=== PATIENT | female | born 1980 | race Caucasian/White ===

== ENCOUNTER 2022-05-18 11:31 | Emergency (ER) | payer BC, SELFPAY ==
[2022-05-18 11:32] VITALS: BP 100/65; PULSE 52; RESP 14; TEMP 36.4; O2SAT 100; BMI 23.1
--- NOTE | 2022-05-18 11:54 | ED.VIS.FEGU ---
HPI HPI - Female History of Present Illness Chief Complaint: Vag Bleeding Informant: patient Narrative Narrative: Patient is a 41-year-old female presenting with heavy vaginal bleeding. Patient was started on Xarelto about 3 weeks ago for atrial fibrillation. Patient is also on sotalol for this. This is her first menstrual cycle since being on Xarelto. She states her period started 2 days ago and she is been having heavy bleeding. She states she is gone through 4-5 super tampons today already. She initially saw the nurse practitioner at her fishing rod mechanic office and then they recommend she come to the ER to have her blood counts checked and to get some IV fluids. Patient states she has been feeling a little lightheaded and weak but right now she actually feels better. Denies any pelvic pain. Was prescribed a medication to help stop the bleeding at the office today but has not picked it up. Denies any other bleeding. Patient was informed that she does not necessarily need to be on the Xarelto because her [id number] score was so low however she elected to start taking it anyway. No other complaints at this time. [facility] Medical History A-fib Allergy/AdvReac Type Severity Reaction Status Date / Time amoxicillin Allergy Hives Verified 05/18/22 11:34 cephalexin Allergy Hives Verified 05/18/22 11:34 Social History Smoking Status: Never smoker ROS ROS ED Constitutional Constitutional ED: Denies chills or fever(s) Eyes Eyes: Denies blurry vision or change in vision ENT ENT ED: Denies sore throat Cardiovascular Cardiovascular: Denies chest pain Respiratory/Chest Respiratory/Chest: Denies cough Gastrointestinal Gastrointestinal: Denies abdominal pain, diarrhea, nausea or vomiting Genitourinary Genitourinary ED: Reports other Details: heavy vaginal bleeding ; Denies dysuria or hematuria Musculoskeletal Musculoskeletal: Denies arthralgias or myalgias Integumentary Denies rash Neurologic Neurologic: Denies headache(s) or weakness Psychiatric Psychiatric: Denies anxiety Hematologic/Lymphatic Hematologic/Lymphatic: Reports easy bleeding and easy bruising EXAM Physical Exam Const Vital Signs: 05/18/22 11:32 Temperature 97.6 F L Temperature Source Temporal Pulse Rate 52 L Respiratory Rate 14 Blood Pressure 100/65 Blood Pressure Mean 76 Pulse Ox 100 Oxygen Delivery Method Room Air Positive well nourished and well developed General Appearance ED: well developed HEENT Reports moist mucous membranes Negative for trauma Eyes PERRL and EOMs intact bilaterally General Eye ED: Negative for pale conjunctiva Neck supple and no JVD Chest Wall inspection of chest normal Resp normal respiratory effort and clear to auscultation bilaterally Cardio regular rate, regular rhythm and no murmurs GI normal to inspection, nondistended, normoactive bowel sounds, soft to palpation and non-tender Neuro oriented x3 and CN's II-XII intact bilaterally Sensorium / Orientation: alert Psych mental status grossly normal Skin no rashes or lesions noted MDM MDM MDM Narrative Medical decision making narrative: Evaluate for heavy vaginal bleeding. She was started on Xarelto which I suspect is contributing to this. She was prescribed a progesterone taper from her fishing rod mechanic earlier today to help stem the bleeding. Patient is hemodynamically stable. She is mildly bradycardic in the ER but I suspect this is from her sotalol. Her hemoglobin is normal at 14.1. She is able to get up and go to the bathroom a couple times without any symptoms. I do not think she requires further imaging or admission at this time. Patient is agreeable with going home. She is given a fluid bolus. Spoke with Dr. Whitaker, her fishing rod mechanic, who will follow up with her in 2 weeks and encouraged her to take the taper to stem the bleeding. Patient will also follow-up with her senior marketing coordinator if the bleeding persists with regular menstrual cycles to see if she still needs to be on anticoagulation. Lab Data Attestation: I reviewed the patient's lab results. Labs: Laboratory Results - last 24 hr 05/18/22 05/18/22 05/18/22 12:19 12:42 12:42 WBC 5.4 RBC 4.44 Hgb 14.1 Hct 41.3 MCV 93.0 MCH 31.8 MCHC 34.1 RDW Std Deviation 42.0 RDW Coeff of Odalys 12.2 Plt Count 229 MPV 10.0 Immature Gran % (Auto) 0.400 Neut % (Auto) 67.5 Lymph % (Auto) 21.4 [place] % (Auto) 8.3 Eos % (Auto) 1.8 Baso % (Auto) 0.6 Absolute Neuts (auto) 3.7 Absolute Lymphs (auto) 1.16 Nucleated RBC % 0 PT 15.2 H INR 1.2 Urine Color Yellow Urine Clarity Clear Urine pH 7.0 Ur Specific [place] 1.005 Urine Protein 30 H Urine Glucose (UA) Normal Urine Ketones Negative Urine Occult Blood 250 H Urine Nitrite Negative Urine Bilirubin Negative Urine Urobilinogen Normal Ur Leukocyte Esterase 25 H Urine RBC 10-25 SEEN Urine WBC 0 SEEN Ur Squamous Epith Cells 0 SEEN Urine Bacteria 0 SEEN Urine Mucus 0 SEEN Urine Test Negative Blood Type Antibody Screen 05/18/22 12:42 WBC RBC Hgb Hct MCV MCH MCHC RDW Std Deviation RDW Coeff of Odalys Plt Count MPV Immature Gran % (Auto) Neut % (Auto) Lymph % (Auto) [place] % (Auto) Eos % (Auto) Baso % (Auto) Absolute Neuts (auto) Absolute Lymphs (auto) Nucleated RBC % PT INR Urine Color Urine Clarity Urine pH Ur Specific [place] Urine Protein Urine Glucose (UA) Urine Ketones Urine Occult Blood Urine Nitrite Urine Bilirubin Urine Urobilinogen Ur Leukocyte Esterase Urine RBC Urine WBC Ur Squamous Epith Cells Urine Bacteria Urine Mucus Urine Test Blood Type A POSITIVE Antibody Screen NEGATIVE Discharge Plan Triage Chief Complaint: Vag Bleeding ED Provider: Belen Jennings Dx/Rx/DC Orders Clinical Impression: Episode of heavy vaginal bleeding, snf (current) use of anticoagulants Primary Care Provider: Naveen Price Referrals: Naveen Price MD [Primary Care Provider] - Kristy Whitaker MD [STAFF PHYSICIAN] - (Follow-up in 2 weeks for repeat check and long-term management of vaginal bleeding. ) Activity Restrictions/Additional Instructions: Please follow-up with your MEMBERSHIP ASSISTANT in 2 weeks for further long-term planning of this vaginal bleeding. Start taking the medication you were prescribed earlier today to help with the bleeding. If the bleeding continues to be an issue, you might need to further discuss it with your senior marketing coordinator for anticoagulation options. Disposition Disposition: Home, Self Care
[2022-05-18 12:24] LABS: Bacteria 0 SEEN /hpf (None Seen); Mucous, Urine 0 SEEN /hpf (<or=2+); Squamous Epithelial Cells - UA 0 SEEN /hpf (5-10); White Blood Cells 0 SEEN /hpf (0-5)
[2022-05-18 12:30] LABS: Glucose, Dipstick Normal (Normal); Ketone-Dipstick Negative (Negative); Leukocyte Esterase-Dipstick 25 /ul (Negative); Nitrite-Dipstick Negative (Negative); Occult Blood-Urine 250 /ul (Negative); Protein-Dipstick 30 mg/dl (Negative); Specific Gravity, Urine 1.005 (1.002-1.030); Urine Bilirubin Dipstick Negative (Negative); Urine Clarity Clear (Clear); Urine Urobilinogen Normal (Normal)
[2022-05-18 12:44] LABS: Internal QC Validated? YES +Cl - CLEAR BKGD; Pregnancy, Urine Negative Negative
[2022-05-18] MEDS: 0.9% Normal Saline 1,000 ML 999 ML IV (12:44)
[2022-05-18 12:45] LABS: Color, Urine Yellow (Yellow); Red Blood Cells-Urine 10-25 SEEN /hpf (0-5)
[2022-05-18 13:01] LABS: Absolute Lymphocyte Count 1.16 X10^3/uL (0.83-4.51); Absolute Neutrophil Count 3.7 X10^3/uL (2.0-7.7); Basophil# 0.03 X10^3/uL; Basophil% 0.6 % (0-1); Eosinophils% 1.8 % (0-5); Hematocrit 41.3 % (37-47); Hemoglobin 14.1 g/dL (12.0-15.0); Lymphocyte # 1.16 X10^3/ul (0.83-4.51); Lymphocyte % 21.4 % (19-41); Mean Corp Hgb Conc 34.1 g/dL (32-36); Mean Corpuscular Hgb 31.8 pg (27.0-32.0); Monocyte# 0.45 X10^3/uL; Monocyte% 8.3 % (0-10); NRBC Flagged by Analyzer 0 % (0-5); Neutrophil # 3.66 X10^3/uL (2.7-7.7); Neutrophil % 67.5 % (47-70); Platelet Count 229 K/mm3 (150-450); RBC Distribution Width CV 12.2 % (11.6-14.6); Red Blood Count 4.44 M/mm3 (4.2-5.4); White Blood Count 5.4 K/mm3 (4.4-11.0)
[2022-05-18 13:09] LABS: International Normalized Ratio 1.2; Prothrombin Time (Protime)PT. 15.2 SECONDS (11.7-14.9)
[2022-05-18 14:48] VITALS: BP 115/78; PULSE 72; RESP 14; TEMP 37.2; O2SAT 99
== END 2022-05-18 14:50 | disposition home or self-care (01) ==
PROVIDERS: Emergency Provider Emergency Medicine; PCP Family Medicine; Visit Provider Emergency Medicine
DX: N93.9 Abnormal uterine and vaginal bleeding, unspecified (principal); Z79.01 Long term (current) use of anticoagulants
CPT/HCPCS: 81001; 81025; 85025; 85610; 86850; 86900; 86901; 99283; J7030; A4216

== ENCOUNTER 2023-12-06 07:54 | Day surgery (SDC) | payer BC, SELFPAY ==
--- NOTE | 2023-11-29 17:14 | PCM.HP.BLA ---
History and Physical Date of Admission: 12/06/23 HPI: The patient is a 43 year old female presenting for pre-operative visit. She is scheduled for hysteroscopy D&C with possible polyp resection, for endometrial polyp on 12/06/23. Procedure discussed along with risks, benefits and complications. Other alternatives discussed for management. Consent form signed? Yes. ? ? PAST MEDICAL HISTORY PAST MEDICAL HISTORY Diagnosis Date ? Atrial fibrillation (HCC) ? ? s/p ablation. Dr. Dawkins in [place] ? Dysthymic disorder ? ? Depression (non-psychotic)/ANXIETY ? Frequent PVCs ? ? 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 History of Clostridioides difficile infection 05/17/2020 ? Incomplete RBBB ? ? Iron deficiency anemia ? ? Migraine, unspecified, with intractable migraine, so stated, without mention of status migrainosus ? ? Migraine ? Mitral valve prolapse ? ? Non-celiac gluten sensitivity ? ? Paroxysmal tachycardia (HCC) ? ? PMH - PAST MEDICAL HISTORY OF 1998 ? heart murmur ? PMH - PAST MEDICAL HISTORY OF 1990 ? CHILDHOOD SEIZURE ? Prolonged QT interval ? ? Wide-complex tachycardia ? ? ? PAST SURGICAL HISTORY PAST SURGICAL HISTORY Procedure Laterality Date ? EXTRACTION, ERUPTED TOOTH OR EXPOSED ROOT (ELEVATION AND/OR FORCEPS REMOVAL) ? ? ? wisdom teeth ? PAST SURGICAL HISTORY OF ? 11/21/2016 ? gum recession surgery ? PAST SURGICAL HISTORY OF N/A 04/2020 ? gum recession surgery ? PAST SURGICAL HISTORY OF ? 07/04/2021 ? cardiac ablation ? ? ? CURRENT MEDICATIONS Current Outpatient Medications Medication Sig Dispense Refill ? levothyroxine (SYNTHROID) 88 mcg tablet Take 1 tablet by mouth once daily. Take on empty stomach. 45 tablet 0 ? multivit with iron,minerals (MULTIVITAMIN AND MINERALS ORAL) ? ascorbic acid, vitamin C, (VITAMIN C) 250 mg tablet ? sotalol (BETAPACE) 80 mg tablet ? cholecalciferol (VITAMIN D3) 1,000 unit tab tablet Take 1,000 Units by mouth once daily. ? ? ? MELATONIN ORAL Take by mouth. ? ? ? ferrous sulfate (IRON ORAL) Take 1 tablet by mouth once daily. ? ? ? No current facility-administered medications for this visit. ? ? ALLERGIES: Amoxicillin and Keflex [Cephalexin] ? PERSONAL HISTORY: SOCIAL HISTORY Social History ? Tobacco Use ? Smoking status: Never ? Smokeless tobacco: Never Vaping Use ? Vaping Use: Never used Substance Use Topics ? Alcohol use: No ? Drug use: No ? FAMILY HISTORY: FAMILY HISTORY FAMILY HISTORY Problem Relation Age of Onset ? other (Gallbladder Removal) Mother ? ? Thyroid Father ? ? other (Gallbladder Removal) Maternal Grandmother ? ? Coronary Artery Disease Maternal Grandfather ? ? Osteoporosis Maternal Grandfather ? ? Psychiatry Paternal Grandfather ? ? Heart Paternal Grandfather ? ? ? REVIEW OF SYMPTOMS: GENERAL: denies fevers or chills ENDOCRINOLOGY: has not been on steroids Cardiology : denies palpitations or chest pain Respiratory: denies SOB or cough Hematology: denies history of prolonged bleeding or easy bruising or VTE Allergy: Denies history of personal or family history of allergy to anesthesia ? PHYSICAL EXAMINATION: ? VITALS: Blood pressure 100/58, pulse (!) 52, resp. rate 14, height 5' 3 (1.6 m), weight 138 lb (62.6 kg), last menstrual period 10/30/2023, SpO2 99%. ? GENERAL: The patient is well nourished, well hydrated in no acute distress. , The patient is oriented to time, place, and person. NECK: Supple. No lynphadenopathy, normal thyroid, no thyromegaly. LUNGS: Clear to auscultation bilaterally. no wheezes, rhonchi or rales HEART: Regular rate and rhythm, Normal heart sounds, and No murmurs or gallops ? IMPRESSION: AUB, endometrial polyp or fibroid on US ? PLAN: The risks/benefits/alternatives and personal involved for the planned hysteroscopy D&C with possible polyp or fibroid resection were reviewed with the patient. Her questions were answered to her satisfaction and she desires to proceed. Consent was signed. I reviewed with her postop instructions and expectations. ? ? I have reviewed and updated past medical and surgical history, medications and allergies Assessment & Plan Assessment/Plan (1) Abnormal uterine bleeding (AUB): (2) Endometrial polyp:
[2023-12-06 08:17] LABS: Internal QC Validated? YES +Cl - CLEAR BKGD; Record Kit Lot#,Urine Preg HCG0000718086
[2023-12-06 08:19] LABS: Pregnancy, Urine Negative Negative
[2023-12-06 08:27] VITALS: BP 94/62; PULSE 45; RESP 16; TEMP 36; O2SAT 100; BMI 23.6
[2023-12-06] MEDS: Lactated Ringers 1,000 ML 15 ML IV (08:34)
[2023-12-06] MEDS: Ketorolac 30 MG/ML Syringe IV (08:35)
[2023-12-06] MEDS: Acetaminophen 500 MG Tablet 1000 MG PO (08:35)
[2023-12-06 08:44] LABS: Hematocrit 43.6 % (37-47); Hemoglobin 14.4 g/dL (12.0-15.0); Mean Corpuscular Hgb 30.7 pg (27.0-32.0); Mean Platelet Vol. 10.2 fl (6.2-12.0); Platelet Count 263 K/mm3 (150-450); RBC Distribution Width CV 12.2 % (11.6-14.6); RBC Distribution Width SD 42.1 fl (35.1-43.9); Red Blood Count 4.69 M/mm3 (4.2-5.4); White Blood Count 3.8 K/mm3 (4.4-11.0)
--- NOTE | 2023-12-06 09:15 | EMB_PTH ---
PATHOLOGY RESULTS PATIENT: SILVIA ALAS LOC: [facility] [place] [facility] [place] U[place][id number] AGE/SX: 43/F ROOM: RE12/06/[address]: Dr. Kristy Whitaker MD : 1980 BED: DIS: 12/06/2023 SPEC #: [id number] RECD: 12/06/23 10:52 STATUS: ALESSANDRA ROBB #: [id number] SUSAN: 12/06/23 09:[address]: Kristy Whitaker DEPT: SURGICAL PATHOLOGY RECD BY: Arina Cabrera ENTERED: 12/06/23 11:30 SP TYPE: ENDOM BX/C ISMAEL DR: Dr. Naveen Price MD Tissues: Endometrium, NOS Procedures: Surgery Specimen Level IV HEADER OPERATION: Hysteroscopy, dilation and curettage, polypectomy PRE-OP DIAGNOSIS: Abnormal uterine bleeding, endometrial polyp TISSUE SUBMITTED: Endometrial shavings/curettings MICROSCOPIC DIAGNOSIS Endometrium, curettings: Proliferative endometrium with minimal disorder. Focal stromal breakdown. Chronic endometritis. Rare strips of benign superficial endocervix and myometrial tissue. AM:rosy 12/07/2023 MICROSCOPIC DESCRIPTION Slides are reviewed. GROSS DESCRIPTION Received in formalin is one container labeled with the patient name and designated endometrial shavings/curettings . The specimen consists of multiple irregular fragments of wilcox-pink soft tissue mixed with hemorrhagic tissue that in aggregate measure 3.0 x 2.5 x 0.3 cm. The specimen is totally submitted in one cassette. / SJ:rosy 12/06/2023 TC:3 CPT: 15888
[2023-12-06] MEDS: Lidocaine 1% /Epi 1:100 (20ml) 20 ML Vial (09:20)
--- NOTE | 2023-12-06 09:36 | OP.PCM_ITS ---
Problems Associated Problem List Diagnoses (1) Endometrial polyp: (2) Abnormal uterine bleeding (AUB): Report of Operation Date of Procedure: 12/06/23 Pre-Operative Diagnosis: endometrial polyp and AUB Post-Operative Diagnosis: same Surgery/Procedure Performed:: hysteroscopy D&C Description of Surgical Findings:: Normal endometrium, cervix and vagina Surgeon: Kristy Whitaker child life specialist: Anand arenas Type of Anesthesia: MAC/Supplemental/Local Anesthesiologist: Aayush Magaña Special Medications: none Specimen's removed: endometrial curettings Drains: none Estimated Blood Loss (mL): 10 Fluids Replaced: 800 Description of Procedure: The patient was taken to the OR where she was prepped and draped in dorsal lithotomy position. The weighted speculum was placed in the vagina and the anterior lip of the cervix was grasped with a single-tooth tenaculum. A paracervical block was administered with [1% lidocaine with 1-100,000 epinephrine solution]. The cervix was dilated serially with Hegar dilators. The SYmphion hysteroscope was placed into the uterine cavity and the above findings were noted. Bilateral tubal ostia [were] identified. The resection device was readied and inserted and a visual curettage was done of the endometrial cavity. The instruments were removed from the vagina. The specimen was handed off and sent to pathology. All sponge and needle counts were correct. Vaginal sweep was performed by me. The patient was awakened and taken to the recovery room in stable condition. Calculated hysteroscopic fluid deficit of 700 cc of normal saline Grafts/Implants Used: none Procedure Start Time: 09:18 Procedure Stop Time: 09:34 Complications none Admit VTE Documentation VTE Present on Admission: No VTE Mechan Device Prophylaxis: SCD's VTE Pharm Prophylaxis ordered?: No Reason prophylaxis not ordered:: Procedure Not Indicated
--- NOTE | 2023-12-06 09:40 | PCM.DC ---
Discharge Instructions Diet Discharge Diet: No restrictions Activity Discharge Activity: May Drive (12/07/23), May Shower and May Take a Tub Bath (in 1 week) May resume sexual activity in: 1 week Lifting Restrictions: none Dressing / Incision Call your doctor if your incision/area has: Sudden Increased Bleeding and Foul Smelling Discharge Call your doctor if you observe: Fever of 101 or Higher and Using more than 1 pad per hour (for 2 hrs in a row) Follow Up Care Please Follow Up With: Kristy Whitaker MD When: You do not need a postop appointment. Call [phone] or send a [employer] message to make an appointment or with any concerns. Test Results: Test results from this visit will be discussed in further detail at your follow-up appointment, if applicable. Discharge Plan Admission Attending Provider: Kristy Whitaker Primary Care Provider: Naveen Price Discharge Orders/Prescriptions Prescriptions: No Action levothyroxine 88 mcg tablet 88 mcg PO DAILY sotalol 80 mg tablet 80 mg PO BID cholecalciferol (vitamin D3) [Vitamin D3] 50 mcg (2,000 unit) capsule 50 mcg PO DAILY multivitamin [Daily Multi-Vitamin] Tablet 1 tab PO DAILY ferrous sulfate [Feosol] 325 mg (65 mg iron) tablet 325 mg PO DAILY turmeric 400 mg capsule PO BID Fish Oil 300-500 mg capsule PO Referrals / Follow Up: Naveen Price MD [Primary Care Provider] - Disposition Disposition (needs filled in before D/C Order can be placed): Home, Self Care
[2023-12-06 09:45] VITALS: BP 92/59; BP 94/62; PULSE 68; RESP 16; TEMP 36.8; O2SAT 97
[2023-12-06 09:50] VITALS: BP 94/62; BP 94/67; PULSE 64; RESP 16; O2SAT 97
[2023-12-06 09:55] VITALS: BP 93/66; BP 94/62; PULSE 62; RESP 16; TEMP 36.3; O2SAT 98
[2023-12-06 10:47] VITALS: BP 94/62
== END 2023-12-06 10:47 | disposition home or self-care (01) ==
LOC: SDC 07:55 → AC 07:57
PROVIDERS: Anesthesiology; PCP Family Medicine; Referring Provider Obstetrics & Gynecology; Visit Provider Obstetrics & Gynecology
PROC: 0UB98ZZ Excision of Uterus, Via Natural or Artificial Opening Endoscopic (ICD-10-PCS; CPT 58558; principal; 2023-12-06 09:00)
DX: N71.1 Chronic inflammatory disease of uterus (principal); N93.9 Abnormal uterine and vaginal bleeding, unspecified; N84.0 Polyp of corpus uteri; E03.9 Hypothyroidism, unspecified; Z79.899 Other long term (current) drug therapy
CPT/HCPCS: 58558; 00952; 81025; 85027; 88305; J7120; J2405